=== PATIENT | female | born 1955 | race Caucasian/White ===

== ENCOUNTER → 2023-07-15 09:07 | Outpatient (BNVA) | payer MEDICARE, OTHER, SELFPAY | PROVIDERS: Family Provider Family Medicine; PCP Nurse Practitioner; Visit Provider Nurse Practitioner | DX: E03.9 Hypothyroidism, unspecified (principal); E55.9 Vitamin D deficiency, unspecified; E78.5 Hyperlipidemia, unspecified | CPT/HCPCS: 80053; 80061; 82306; 84439; 84443; 84481; 85025 ==

== ENCOUNTER 2023-12-07 08:23 | Oncology outpatient (recurring) (ONCR) | payer MEDICARE, OTHER, SELFPAY ==
[2023-12-07] MEDS: MEPOLIZUMAB 100 MG SUBCUT (09:26)
[2023-12-07 09:30] VITALS: BP 136/74; PULSE 72; RESP 16; TEMP 36.6; O2SAT 96
== END 2023-12-13 23:59 | disposition home or self-care (01) ==
PROVIDERS: Family Provider Family Medicine; PCP Nurse Practitioner
DX: J82.83 Eosinophilic asthma (principal); Z53.9 Procedure and treatment not carried out, unspecified reason
CPT/HCPCS: 96372; J2182

== ENCOUNTER 2024-01-04 08:14 | Oncology outpatient (recurring) (ONCR) | payer MEDICARE, OTHER, SELFPAY ==
[2024-01-04] MEDS: MEPOLIZUMAB 100 MG SUBCUT (08:43)
[2024-01-04 08:46] VITALS: BP 123/79; PULSE 78; RESP 18; TEMP 36.6; O2SAT 99
== END 2024-01-12 23:59 | disposition home or self-care (01) ==
PROVIDERS: Family Provider Family Medicine; PCP Nurse Practitioner
DX: J82.83 Eosinophilic asthma (principal); Z53.9 Procedure and treatment not carried out, unspecified reason
CPT/HCPCS: 96401; J2182

== ENCOUNTER → 2024-01-27 16:25 | Outpatient (BNVA) | payer MEDICARE, OTHER, SELFPAY | PROVIDERS: Family Provider Family Medicine; PCP Nurse Practitioner; Visit Provider Nurse Practitioner | DX: J82.83 Eosinophilic asthma (principal); E03.9 Hypothyroidism, unspecified; M19.90 Unspecified osteoarthritis, unspecified site | CPT/HCPCS: 80053; 84443 ==

== ENCOUNTER 2024-02-09 07:59 | Oncology outpatient (recurring) (ONCR) | payer MEDICARE, OTHER, SELFPAY ==
[2024-02-09] MEDS: MEPOLIZUMAB 100 MG SUBCUT (08:46)
[2024-02-09 08:49] VITALS: BP 122/75; PULSE 71; RESP 16; TEMP 36.6; O2SAT 94
== END 2024-02-12 23:59 | disposition home or self-care (01) ==
PROVIDERS: Family Provider Family Medicine; PCP Nurse Practitioner
DX: J82.83 Eosinophilic asthma (principal); Z53.9 Procedure and treatment not carried out, unspecified reason
CPT/HCPCS: 96377; J2182

== ENCOUNTER 2024-03-11 07:56 | Oncology outpatient (recurring) (ONCR) | payer MEDICARE, OTHER, SELFPAY ==
[2024-03-11 08:08] VITALS: BP 123/58; PULSE 74; RESP 16; TEMP 36.5; O2SAT 98
[2024-03-11] MEDS: MEPOLIZUMAB 100 MG SUBCUT (08:27)
== END 2024-03-13 23:59 | disposition home or self-care (01) ==
PROVIDERS: Family Provider Family Medicine; PCP Nurse Practitioner
DX: J82.83 Eosinophilic asthma (principal); Z79.620 Long term (current) use of immunosuppressive biologic
CPT/HCPCS: 96372; J2182

== ENCOUNTER → 2024-04-07 16:01 | Outpatient (BNVA) | payer MEDICARE, OTHER, SELFPAY | PROVIDERS: Family Provider Family Medicine; PCP Nurse Practitioner; Visit Provider Nurse Practitioner | DX: E03.8 Other specified hypothyroidism (principal) | CPT/HCPCS: 84439; 84443; 84481 ==

== ENCOUNTER 2024-04-08 07:54 | Oncology outpatient (recurring) (ONCR) | payer MEDICARE, OTHER, SELFPAY ==
[2024-04-08] MEDS: MEPOLIZUMAB 100 MG SUBCUT (08:23)
[2024-04-08 08:24] VITALS: BP 125/85; PULSE 80; RESP 16; O2SAT 97
== END 2024-04-13 23:59 | disposition home or self-care (01) ==
PROVIDERS: Family Provider Family Medicine; PCP Nurse Practitioner
DX: J82.83 Eosinophilic asthma (principal)
CPT/HCPCS: 96372; J2182

== ENCOUNTER 2024-05-06 10:34 | Oncology outpatient (recurring) (ONCR) | payer MEDICARE, OTHER, SELFPAY ==
[2024-05-06] MEDS: MEPOLIZUMAB 100 MG SUBCUT (10:58)
== END 2024-05-14 23:55 | disposition home or self-care (01) ==
PROVIDERS: Family Provider Family Medicine; PCP Nurse Practitioner
DX: J82.83 Eosinophilic asthma (principal); Z79.899 Other long term (current) drug therapy
CPT/HCPCS: 96372; J2182

== ENCOUNTER 2024-06-06 08:15 | Oncology outpatient (recurring) (ONCR) | payer MEDICARE, OTHER, SELFPAY ==
[2024-06-06] MEDS: MEPOLIZUMAB 100 MG SUBCUT (08:41)
[2024-06-06 08:43] VITALS: BP 128/64; RESP 16; TEMP 36.5; O2SAT 96
== END 2024-06-13 23:59 | disposition home or self-care (01) ==
PROVIDERS: Family Provider Family Medicine; PCP Nurse Practitioner
DX: J82.83 Eosinophilic asthma (principal); Z79.899 Other long term (current) drug therapy
CPT/HCPCS: 96372; J2182

== ENCOUNTER 2024-07-04 08:05 | Oncology outpatient (recurring) (ONCR) | payer MEDICARE, OTHER, SELFPAY ==
[2024-07-04] MEDS: MEPOLIZUMAB 100 MG SUBCUT (08:30)
== END 2024-07-14 23:59 | disposition home or self-care (01) ==
PROVIDERS: Family Provider Family Medicine; PCP Nurse Practitioner; Visit Provider Internal Medicine
DX: Z79.899 Other long term (current) drug therapy (principal); J82.83 Eosinophilic asthma
CPT/HCPCS: 96372; J2182

== ENCOUNTER → 2024-07-20 15:54 | Outpatient (BNVA) | payer MEDICARE, OTHER, SELFPAY | PROVIDERS: Family Provider Family Medicine; PCP Nurse Practitioner; Visit Provider Nurse Practitioner | DX: E03.9 Hypothyroidism, unspecified (principal); E03.8 Other specified hypothyroidism; M79.18 Myalgia, other site | CPT/HCPCS: 84439; 84443; 84481 ==

== ENCOUNTER 2024-08-01 13:48 | Oncology outpatient (recurring) (ONCR) | payer MEDICARE, OTHER, SELFPAY ==
[2024-08-01] MEDS: MEPOLIZUMAB 100 MG SUBCUT (14:34)
[2024-08-01 14:37] VITALS: BP 118/79; PULSE 76; RESP 16; TEMP 36.9; O2SAT 97
== END 2024-08-13 23:59 | disposition home or self-care (01) ==
PROVIDERS: Family Provider Family Medicine; PCP Nurse Practitioner; Visit Provider Internal Medicine
DX: J82.83 Eosinophilic asthma (principal); Z79.899 Other long term (current) drug therapy
CPT/HCPCS: 96372; J2182

== ENCOUNTER → 2024-08-15 10:35 | Outpatient (BNVA) | payer MEDICARE, OTHER, SELFPAY | PROVIDERS: Family Provider Family Medicine; PCP Nurse Practitioner; Visit Provider Nurse Practitioner | DX: E03.8 Other specified hypothyroidism (principal) | CPT/HCPCS: 81000; 84443; 84481 ==

== ENCOUNTER 2024-08-29 07:48 | Oncology outpatient (recurring) (ONCR) | payer MEDICARE, OTHER, SELFPAY ==
[2024-08-29] MEDS: MEPOLIZUMAB 100 MG SUBCUT (08:36)
[2024-08-29 09:48] VITALS: BP 106/73; PULSE 70; RESP 16; TEMP 36.3; O2SAT 95
== END 2024-09-13 23:59 | disposition home or self-care (01) ==
LOC: ONCMED 07:48
PROVIDERS: Family Provider Family Medicine; PCP Nurse Practitioner; Visit Provider Internal Medicine
DX: J82.83 Eosinophilic asthma (principal); Z79.899 Other long term (current) drug therapy
CPT/HCPCS: 96372; J2182

== ENCOUNTER 2024-09-27 14:48 | Oncology outpatient (recurring) (ONCR) | payer MEDICARE, OTHER, SELFPAY ==
[2024-09-27] MEDS: MEPOLIZUMAB 100 MG SUBCUT (15:16)
== END 2024-10-14 23:59 | disposition home or self-care (01) ==
PROVIDERS: Family Provider Family Medicine; PCP Nurse Practitioner; Visit Provider Internal Medicine
DX: J82.83 Eosinophilic asthma (principal); Z79.620 Long term (current) use of immunosuppressive biologic
CPT/HCPCS: 96372; J2182

== ENCOUNTER 2024-10-25 07:58 | Oncology outpatient (recurring) (ONCR) | payer MEDICARE, OTHER, SELFPAY ==
[2024-10-25] MEDS: MEPOLIZUMAB 100 MG SUBCUT (08:20)
[2024-10-25 08:22] VITALS: BP 119/75; PULSE 81; TEMP 36.8; O2SAT 97
== END 2024-11-11 23:59 | disposition home or self-care (01) ==
PROVIDERS: Family Provider Family Medicine; PCP Nurse Practitioner; Visit Provider Internal Medicine
DX: J82.83 Eosinophilic asthma (principal); Z79.620 Long term (current) use of immunosuppressive biologic
CPT/HCPCS: 96372; J2182

== ENCOUNTER 2024-12-01 14:54 | Oncology outpatient (recurring) (ONCR) | payer MEDICARE, OTHER, SELFPAY ==
[2024-12-01 15:08] VITALS: BP 125/77; PULSE 64; O2SAT 94
[2024-12-01] MEDS: MEPOLIZUMAB 100 MG SUBCUT (15:18)
== END 2024-12-12 23:59 | disposition home or self-care (01) ==
PROVIDERS: Family Provider Family Medicine; PCP Nurse Practitioner; Visit Provider Internal Medicine
DX: J82.83 Eosinophilic asthma (principal); Z79.899 Other long term (current) drug therapy
CPT/HCPCS: 96372; J2182

== ENCOUNTER 2024-12-29 13:21 | Oncology outpatient (recurring) (ONCR) | payer MEDICARE, OTHER, SELFPAY ==
[2024-12-29] MEDS: MEPOLIZUMAB 100 MG SUBCUT (14:28)
[2024-12-29 14:43] VITALS: BP 122/80; PULSE 64; RESP 16; O2SAT 96
== END 2025-01-11 23:59 | disposition home or self-care (01) ==
PROVIDERS: Family Provider Family Medicine; PCP Nurse Practitioner; Visit Provider Internal Medicine
DX: J82.83 Eosinophilic asthma (principal); Z79.899 Other long term (current) drug therapy
CPT/HCPCS: 96372; J2182

== ENCOUNTER 2025-01-26 13:22 | Oncology outpatient (recurring) (ONCR) | payer MEDICARE, OTHER, SELFPAY ==
[2025-01-26 13:32] VITALS: BP 106/68; PULSE 76; RESP 18; TEMP 36.5; O2SAT 98
== END 2025-02-11 23:59 | disposition home or self-care (01) ==
PROVIDERS: Family Provider Family Medicine; PCP Nurse Practitioner; Visit Provider Internal Medicine
DX: Z53.9 Procedure and treatment not carried out, unspecified reason (principal)

== ENCOUNTER → 2025-01-30 11:06 | Outpatient (BNVA) | payer MEDICARE, OTHER, SELFPAY | PROVIDERS: Family Provider Family Medicine; PCP Nurse Practitioner; Visit Provider Nurse Practitioner | DX: E78.2 Mixed hyperlipidemia (principal); E03.8 Other specified hypothyroidism; E55.9 Vitamin D deficiency, unspecified | CPT/HCPCS: 80053; 80061; 82306; 82607; 84439; 84443; 84481 ==

== ENCOUNTER 2025-03-02 10:46 | Oncology outpatient (recurring) (ONCR) | payer MEDICARE, OTHER, SELFPAY ==
[2025-03-02] MEDS: MEPOLIZUMAB 100 MG SUBCUT (11:47)
== END 2025-03-13 23:59 | disposition home or self-care (01) ==
PROVIDERS: Family Provider Family Medicine; PCP Nurse Practitioner; Visit Provider Internal Medicine
DX: J82.83 Eosinophilic asthma (principal); Z79.899 Other long term (current) drug therapy
CPT/HCPCS: 96372; J2182

== ENCOUNTER 2025-03-30 11:37 | Oncology outpatient (recurring) (ONCR) | payer MEDICARE, OTHER, SELFPAY ==
[2025-03-30] MEDS: MEPOLIZUMAB 100 MG SUBCUT (12:28)
== END 2025-04-13 23:59 | disposition home or self-care (01) ==
PROVIDERS: Family Provider Family Medicine; PCP Nurse Practitioner; Visit Provider Internal Medicine
DX: J82.83 Eosinophilic asthma (principal); Z79.899 Other long term (current) drug therapy
CPT/HCPCS: 96372; J2182

== ENCOUNTER 2025-04-27 11:54 | Oncology outpatient (recurring) (ONCR) | payer MEDICARE, OTHER, SELFPAY ==
[2025-04-27] MEDS: MEPOLIZUMAB 100 MG SUBCUT (12:37)
== END 2025-05-14 23:59 | disposition home or self-care (01) ==
PROVIDERS: PCP Nurse Practitioner; Visit Provider Internal Medicine
DX: J82.83 Eosinophilic asthma (principal); Z79.899 Other long term (current) drug therapy
CPT/HCPCS: 96372; J2182

== ENCOUNTER 2025-05-25 12:05 | Oncology outpatient (recurring) (ONCR) | payer MEDICARE, OTHER, SELFPAY ==
[2025-05-25] MEDS: MEPOLIZUMAB 100 MG SUBCUT (12:12)
== END 2025-06-13 23:59 | disposition home or self-care (01) ==
PROVIDERS: PCP Nurse Practitioner; Visit Provider Internal Medicine
DX: J82.83 Eosinophilic asthma (principal); Z79.899 Other long term (current) drug therapy
CPT/HCPCS: 96372; J2182

== ENCOUNTER → 2025-06-07 14:44 | Outpatient (BNVA) | payer MEDICARE, OTHER, SELFPAY | PROVIDERS: PCP Nurse Practitioner; Visit Provider Clinical Nurse Specialist Adult Health | DX: N30.00 Acute cystitis without hematuria (principal) | CPT/HCPCS: 81000; 87086 ==

== ENCOUNTER 2025-06-23 09:46 | Oncology outpatient (recurring) (ONCR) | payer MEDICARE, OTHER, SELFPAY ==
[2025-06-23] MEDS: MEPOLIZUMAB 100 MG SUBCUT (10:05)
== END 2025-07-14 23:59 | disposition home or self-care (01) ==
PROVIDERS: PCP Nurse Practitioner; Visit Provider Internal Medicine
DX: J82.83 Eosinophilic asthma (principal); Z79.899 Other long term (current) drug therapy
CPT/HCPCS: 96372; 96377; J2182

== ENCOUNTER 2025-07-21 08:09 | Oncology outpatient (recurring) (ONCR) | payer MEDICARE, OTHER, SELFPAY ==
[2025-07-21] MEDS: MEPOLIZUMAB 100 MG SUBCUT (08:22)
== END 2025-08-13 23:59 | disposition home or self-care (01) ==
PROVIDERS: PCP Nurse Practitioner; Visit Provider Internal Medicine
DX: J82.83 Eosinophilic asthma (principal); Z79.899 Other long term (current) drug therapy
CPT/HCPCS: 96372; J2182

== ENCOUNTER 2025-08-21 09:08 | Oncology outpatient (recurring) (ONCR) | payer MEDICARE, OTHER, SELFPAY ==
[2025-08-21] MEDS: MEPOLIZUMAB 100 MG SUBCUT (09:32)
[2025-08-21 09:34] VITALS: BP 164/81; PULSE 88; RESP 16; O2SAT 96
== END 2025-09-13 23:59 | disposition home or self-care (01) ==
PROVIDERS: PCP Nurse Practitioner; Visit Provider Internal Medicine
DX: J82.83 Eosinophilic asthma (principal); Z79.899 Other long term (current) drug therapy
CPT/HCPCS: 96372; J2182